=== PATIENT | male | born 2000 | race Hispanic/Latino ===

== ENCOUNTER 2022-11-06 07:37 | Emergency (ER) | payer MEDICAID ==
[2022-11-06 08:03] LABS: #Basophils 0.1 thou/uL (0.0-0.2); #Eosinphils 0.1 thou/uL (0.0-0.7); #Monocytes 0.7 thou/uL (0.11-0.59); #Neutrophils 15.9 thou/uL (1.40-6.50); %Basophils 0.3 % (0.0-1.0); %Eosinophils 0.3 % (0.0-10.0); %Lymphocytes 13.3 % (28.0-48.0); %Monocytes 3.5 % (0.0-4.0); %Neutrophils 81.9 % (31.0-61.0); Mean Corpuscular HGB CONC 36.4 g/dL (32.0-36.0); Mean Corpuscular Hemoglobin 32.9 pg (25.0-35.0); Mean Corpuscular Volume 90.5 fl (78.0-98.0); Mean Platelet Volume 9.1 fL (7.4-10.4); Platelet Count 253 10x3/uL (130-400); RBC Distribution Width 11.9 % (11.5-14.5); Red Blood Cell (RBC) Count 5.47 mill/uL (4.00-5.20); White Blood Cell (WBC) Count 19.4 10x3/uL (4.8-10.8)
[2022-11-06 08:24] LABS: ALT (SGPT) 33 U/L (8-55); AST (SGOT) 37 U/L (5-34); Albumin 5.2 g/dL (3.5-5.0); Alkaline Phosphatase 90 U/L (50-130); Anion Gap 21 mmol/L (10-20); BUN (Urea Nitrogen) 15 mg/dL (8.9-20.6); Bilirubin, Total 1.7 mg/dL (0.2-1.2); Calc. Creatinine Clearance 0 mL/min (70-130); Calcium 9.9 mg/dL (7.8-10.44); Carbon Dioxide 23 mmol/L (22-29); Chloride 105 mmol/L (98-107); Estimated GFR 102; Globulin 2.1 g/dL (2.4-3.5); Glucose 119 mg/dL (70-105); Protein, Total 7.3 g/dL (6.0-8.3); Sodium 145 mmol/L (136-145)
[2022-11-06] MEDS ORDERED: Ketorolac Tromethamine 30 MG/ML VIAL ONE (08:56)
[2022-11-06 09:10] LABS: Actual Bicarbonate (HCO3v) 21.1 mEq/L (22-28); Base Excess -3.7 mEq/L (-2.0 to +3.0); Calcium, Ionized (venous) 1.05 mmol/L (1.16-1.32); Chloride (VBG) 104 mmol/L (98-106); Hematocrit-VBG 55 % (42.0-52.0); Hemoglobin (Hb) 18.8 g/dL (13.2-17.3); Potassium (VBG) 4.22 mmol/L (3.70-5.30); Sodium 142.4 mmol/L (133-146); pH (venous) 7.362 (7.32-7.43)
[2022-11-06 09:56] LABS: SARS-CoV-2 NAA Rapid Test Not Detected (NotDetected)
== END 2022-11-06 12:18 | disposition home or self-care (01) ==
LOC: ERS 07:37
DX: R07.9 Chest pain, unspecified (principal); R11.2 Nausea with vomiting, unspecified; D72.829 Elevated white blood cell count, unspecified; Z20.822 Contact with and (suspected) exposure to COVID-19
CPT/HCPCS: 36415; 71045; 76705; 80053; 82805; 84484; 85025; 93005; 94760; 96361; 96374; J1885